=== PATIENT | male | born 2000 | race Caucasian/White ===

== ENCOUNTER 2021-02-01 18:58 | Emergency (ER) | payer MEDICAID, SELFPAY ==
[2021-02-01 18:59] VITALS: BP 127/67; PULSE 107; RESP 18; TEMP 36.4; O2SAT 98; BMI 25.6
[2021-02-01] MEDS: dexAMETHasone 4 MG Tablet PO (22:04)
[2021-02-01] MEDS: Ketorolac 30 MG/ML Syringe IV (22:06)
[2021-02-01] MEDS: 0.9% Normal Saline 1,000 ML 999 ML IV (22:09)
[2021-02-01 22:18] LABS: Internal QC Validated? YES +Cl - CLEAR BKGD; Monotest Negative (Negative)
--- NOTE | 2021-02-01 23:18 | CT_ITS ---
STUDY: CT SOFT TISSUE NECK WITH CONTRAST REASON FOR EXAM: Male, 20 years old. Pain in the right throat. RADIATION DOSAGE (If Supplied By Facility): CTDIvol = ( 16.53 ) mGy, DLP = ( 516.35 ) mGycm TECHNIQUE: The patient was scanned in a multi-detector CT scanner. High resolution transaxial imaging was performed following intravenous administration of IV 100mL Isovue-300. Sagittal and coronal images were reconstructed. Individualized dose optimization techniques were used for this CT. COMPARISON: None. FINDINGS: Normal bilateral parotid glands. Normal bilateral occupational therapist home based spaces. Normal bilateral parapharyngeal spaces. Normal bilateral carotid spaces. Normal bilateral sublingual and submandibular glands and spaces. There is diffuse adenoidal enlargement consistent with adenoidal hyperplasia. Normal retropharyngeal space. Normal perivertebral space. Enlargement although the visualized bilateral faucial tonsils, right greater than left. No distinct abscess although there is vague areas of low attenuation centrally in both tonsils.. The visualized tongue, tongue base and oropharynx are normal. Enlarged jugulodigastric lymph nodes. Smaller lymph nodes are seen bilaterally in the posterior triangles. There is no demonstrated solid or cystic mass lesion. There is no abnormal contrast enhancement. Normal epiglottis, bilateral vallecula and hypopharynx. The pre-epiglottic and paraglottic adipose spaces are normal. Normal visualized bilateral piriform sinuses, aryepiglottic folds, vocal cords, and arytenoid-cricoid articulations. Normal subglottic trachea. Normal bilateral lobes of the thyroid gland. Normal visualized pulmonary apices. Normal visualized paranasal sinuses. Normal visualized cervical spine. CT/Soft Tissue Neck WITH Contrast IMPRESSION: 1. Findings consistent with tonsillitis and associated adenoidal hypertrophy. There is no distinct tonsillar abscess. 2. Associated adenopathy in the upper neck. 3. Otherwise normal CT of the soft tissues of the neck. Electronically Signed: Dominick Wallace DO at 23:44 EDT Tel [phone], Service support ,
--- NOTE | 2021-02-02 00:05 | EX.ED.DYSGE1 ---
HPI History of Present Illness Chief Complaint: Other, Pain/Inj Informant: patient Narrative Narrative: 20-year-old male presenting with sore throat and painful swallowing. He states he noticed a lump on his right side of his neck 2 days ago. He was seen in urgent care and sent to the ED for evaluation for possible peritonsillar abscess. He denies fever. He denies cough or rhinorrhea. Denies other complaints. Prior similar symptoms: No Recent Illness/Hospitalization: No PFSH PFSH Allergy/AdvReac Type Severity Reaction Status Date / Time No Known Allergies Allergy Verified 02/01/21 19:02 Social History Smoking Status: Current every day smoker ROS ROS ED Constitutional Constitutional ED: Denies fever(s) Eyes Eyes: Denies change in vision ENT ENT ED: Reports sore throat; Denies rhinorrhea Cardiovascular Cardiovascular: Denies chest pain or palpitations Respiratory/Chest Respiratory/Chest: Denies cough or dyspnea Gastrointestinal Gastrointestinal: Denies abdominal pain, diarrhea, nausea or vomiting Genitourinary Genitourinary ED: Denies dysuria Musculoskeletal Musculoskeletal: Denies myalgias Integumentary Denies rash Neurologic Neurologic: Denies headache(s) Psychiatric Psychiatric: Denies suicidal thoughts EXAM Physical Exam Const Vital Signs: 02/01/21 18:59 02/01/21 20:48 Temperature 97.6 F L Temperature Source Temporal Pulse Rate 107 H Respiratory Rate 18 Respiratory Effort Normal Respiratory Pattern Normal Blood Pressure 127/67 H Blood Pressure Mean 87 Pulse Ox 98 Oxygen Delivery Method Room Air Positive well nourished and well developed General Appearance ED: well developed HEENT Reports normocephalic and head/scalp atraumatic HEENT Narrative: Bilateral tonsillar erythema and exudate. Right slightly greater than left. Uvula midline Eyes PERRL and EOMs intact bilaterally Neck supple Neck Narrative: No meningismus General: Negative for tenderness Lymph Lymphatic Narrative: Right anterior cervical lymphadenopathy Chest Wall inspection of chest normal Resp normal respiratory effort and clear to auscultation bilaterally Cardio regular rate and regular rhythm no CVA tenderness Extremity normal to inspection Neuro oriented x3 Sensorium / Orientation: alert Psych mental status grossly normal Skin no rashes or lesions noted MDM MDM MDM Narrative Medical decision making narrative: Patient was given IV fluids, Toradol, Decadron. Rapid strep and mono were negative. CT soft tissue neck shows tonsillitis without abscess. He was given Bicillin IM. Advised to continue Naprosyn at home. Advised to follow-up with primary care physician. Advised return to ED for worsening complaints. Lab Data Attestation: I reviewed the patient's lab results. Labs: Laboratory Results - last 24 hr 02/01/21 22:02 Monoscreen Negative Radiography Diagnostic Testing: Radiology Impression Soft Tissue Neck CT 02/01/21 23:18 IMPRESSION: 1. Findings consistent with tonsillitis and associated adenoidal hypertrophy. There is no distinct tonsillar abscess. 2. Associated adenopathy in the upper neck. 3. Otherwise normal CT of the soft tissues of the neck. Electronically Signed: Dominick Wallace DO at 23:44 EDT Tel [phone], Service support , Discharge Plan Triage Chief Complaint: Other, Pain/Inj ED Provider: Juhi Choi Dx/Rx/DC Orders Clinical Impression: Acute tonsillitis Instructions: ED Tonsillitis Primary Care Provider: Ken Santos Referrals: Ken Santos MD [Primary Care Provider] - Disposition Disposition: Home, self care
[2021-02-02] MEDS: Penicillin G Benzathine 1.2 MU/2 ML Syringe IM (00:24)
[2021-02-02 00:38] VITALS: PULSE 76; RESP 16; O2SAT 98
== END 2021-02-02 00:39 | disposition home or self-care (01) ==
PROVIDERS: Emergency Provider Emergency Medicine; PCP Pediatrics
DX: J03.90 Acute tonsillitis, unspecified (principal); F17.200 Nicotine dependence, unspecified, uncomplicated
CPT/HCPCS: 70491; 86308; 87880; 96361; 96372; 96374; 99283; J7030; Q9967; A4216